=== PATIENT | female | born 1990 | race Caucasian/White ===

== ENCOUNTER 2018-03-16 18:29 | Emergency (ER) | payer OTHER ==
[~2018-03-16] VITALS: Ht 160 cm; Wt 56.7 kg
== END 2018-03-16 19:07 | disposition home or self-care (01) ==
LOC: FSED 18:29 → EDSEX 18:29 → FSED 19:07
DX: J02.0 Streptococcal pharyngitis (principal); F32.9 Major depressive disorder, single episode, unspecified; F17.210 Nicotine dependence, cigarettes, uncomplicated
CPT/HCPCS: 99283

== ENCOUNTER 2018-03-16 20:02 | Emergency (ER) | payer OTHER ==
[~2018-03-16] VITALS: Ht 160 cm; Wt 56.7 kg
[2018-03-16] MEDS ORDERED: PENICILLIN G BENZATHINE LA 1.2 MU TBX IM STA (20:14)
[2018-03-16] MEDS ORDERED: ACETAMINOPHEN/CODEINE ELIX 120-12 MG/5 ML UDC PO ONE (20:15)
[2018-03-16] MEDS ORDERED: DEXAMETHASONE SOD PHOS 10 MG/1 ML VIAL INJ ONE (20:15)
[2018-03-16] MEDS ORDERED: PENICILLIN G BENZATHINE LA 1.2 MU TBX ONE (20:23)
[2018-03-16] MEDS ORDERED: DEXAMETHASONE SOD PHOS 10 MG/1 ML VIAL ONE (20:23)
== END 2018-03-16 21:00 | disposition home or self-care (01) ==
LOC: EDSEX → ER 20:02
DX: J02.0 Streptococcal pharyngitis (principal); F32.9 Major depressive disorder, single episode, unspecified
CPT/HCPCS: 99282; J0561; J1100; 99283

== ENCOUNTER 2018-07-15 23:49 | Emergency (ER) | payer MEDICARE, OTHER ==
[~2018-07-15] VITALS: Ht 160 cm; Wt 56.7 kg
[2018-07-16] MEDS ORDERED: DEXAMETHASONE SOD PHOS 10 MG/1 ML VIAL IM ONE (00:30)
[2018-07-16] MEDS ORDERED: DEXAMETHASONE SOD PHOS 10 MG/1 ML VIAL ONE (00:39)
[2018-07-16] MEDS ORDERED: KEFLEX500 MG PO (01:14)
[2018-07-16] MEDS ORDERED: BACITRACIN15 GM TOP (01:14)
[2018-07-16] MEDS ORDERED: HIBICLENS120 ML TOP (01:14)
== END 2018-07-16 01:30 | disposition home or self-care (01) ==
LOC: ER 23:49
DX: L20.9 Atopic dermatitis, unspecified (principal)
CPT/HCPCS: 99282; J1100

== ENCOUNTER 2018-10-01 18:19 | Emergency (ER) | payer SELFPAY ==
[~2018-10-01] VITALS: Ht 160 cm; Wt 56.7 kg
[~2018-10-01 18:19] MED LIST: BACITRACIN15 GM TOP; HIBICLENS120 ML TOP; KEFLEX500 MG PO
--- OUTSIDE RECORDS SUMMARY | 2018-10-01 18:21 | XMS REPORT ---
Author Author [facility] Address Unknown Phone Unavailable Care Team Providers Care Adoption Worker Name Role Phone Unavailable Unavailable Problems This patient has no known problems. Allergies, Adverse Reactions, Alerts This patient has no known allergies or adverse reactions. Medications This patient has no known medications.
[2018-10-01] MEDS ORDERED: TETANUS/DIPHTHERIA TOX ADULT 0.5 ML SYR IM ONE (18:45)
--- NOTE | 2018-10-01 19:03 | Diagnostic Imaging Report ---
HAND 3+ VIEWS LEFT - 3 views HISTORY: Pain. Dr. Hughes. COMPARISON: None available. FINDINGS: Bones: No acute displaced fracture. Osseous alignment is within normal limits. Diffuse osteopenia. Joints: The joint spaces are well-maintained. Soft tissues: The soft tissues appear unremarkable. IMPRESSION: No acute radiographic abnormality. No radiopaque foreign bodies. Signed by: Dr. Antoni Wild M.D. on 10/01/2018 7:00 PM
[2018-10-01] MEDS ORDERED: AMOXICILLIN/CLAVULANATE K 500 MG TAB PO ONE (19:30)
[2018-10-01 20:04] VITALS: BP 121/75
[2018-10-01] MEDS ORDERED: BACITRACIN ZINC 0.9GM TP ONE (20:15)
== END 2018-10-01 20:29 | disposition home or self-care (01) ==
LOC: ER 18:19
DX: S61.452A Open bite of left hand, initial encounter (principal); W54.0XXA Bitten by dog, initial encounter; Y92.008 Other place in unspecified non-institutional (private) residence as the place of occurrence of the external cause; F41.9 Anxiety disorder, unspecified; F32.9 Major depressive disorder, single episode, unspecified; F17.210 Nicotine dependence, cigarettes, uncomplicated
CPT/HCPCS: 90471; 90714; 99283

== ENCOUNTER 2018-11-12 10:30 | Emergency (ER) | payer OTHER ==
[~2018-11-12] VITALS: Ht 160 cm; Wt 56.7 kg
--- OUTSIDE RECORDS SUMMARY | 2018-11-12 10:32 | XMS REPORT | Clinical Summary ---
Author Author [facility] Organization [facility] Address Unknown Phone Unavailable Care Team Providers Care [place] Name Role Phone Asked, No Pcp PCP Unavailable Allergies Comments Active Allergy Reactions Severity Noted Date Egg Itching 11/07/2018 Medications End Date Status Medication Sig Dispensed Refills Start Date 12/07/2018 Active 21-iron fu-folic Take 1 tablet 30 tablet 3 acid ( COMPLETE) by mouth 9 14 mg iron- 400 mcg daily for 30 tablet days. Active Problems Not on file Encounters Care Team Description Date Type Specialty Azeem Moreno, DO Normal intrauterine on ultrasound in first trimester (Primary Dx) 11/07/2018 Emergency Emergency Medicine after 11/11/2017 Social History Date Tobacco Use Types Packs/Day Years Used Never Smoker Smokeless Tobacco: Never Used Alcohol Use Drinks/Week oz/Week Comments Yes socially Alcohol Habits Answer Date Recorded How often do you have a drink containing alcohol? Never 11/07/2018 How many drinks containing alcohol do you have on Not asked a typical day when you are drinking? How often do you have six or more drinks on one Not asked occasion? Sex Assigned at Date Recorded Not on file Industry Job Start Date Occupation Not on file Not on file Not on file Travel End Travel History Travel Start No recent travel history available. Last Filed Vital Signs Time Taken Vital Sign Reading 11/07/2018 3:35 PM CDT Blood Pressure 111/66 11/07/2018 3:35 PM CDT Pulse 83 11/07/2018 10:29 AM CDT Temperature 36.7 C (98 F) 11/07/2018 3:35 PM CDT Respiratory Rate 18 11/07/2018 3:35 PM CDT Oxygen Saturation 100% - Inhaled Oxygen - Concentration 11/07/2018 10:26 AM CDT Weight 56.7 kg (125 lb) 11/07/2018 10:26 AM CDT Height 160 cm (5' 3") 11/07/2018 10:26 AM CDT Body Mass Index 22.14 Plan of Treatment Health Maintenance Due Date Last Done Comments INFLUENZA VACCINE 12/08/2018 Procedures Comments Procedure Name Priority Date/Time Associated Diagnosis US TRANSVAGINAL STAT 11/07/2018 2:43 PM CDT US SINGLE LESS STAT 11/07/2018 THAN 14 WEEKS 2:43 PM CDT ESTIMATED GFR STAT 11/07/2018 11:39 AM CDT COMPREHENSIVE METABOLIC STAT 11/07/2018 PANEL 11:39 AM CDT RH TYPE Routine 11/07/2018 11:39 AM CDT HCG QUANTITATIVE, SERUM STAT 11/07/2018 11:39 AM CDT HC COMPLETE BLD COUNT STAT 11/07/2018 W/AUTO DIFF 11:39 AM CDT HCG QUALITATIVE, URINE STAT 11/07/2018 SCREEN 10:38 AM CDT URINALYSIS SCREEN AND STAT 11/07/2018 MICROSCOPY, WITH REFLEX 10:38 AM CDT TO CULTURE after 11/11/2017 Results * US Transvaginal (11/07/2018 2:43 PM CDT) Specimen Narrative Performed At EXAMINATION:US SINGLE LESS THAN 14 WEEKS, US [facility] RADIANT TRANSVAGINAL CLINICAL HISTORY:r o ectopicleft pelvic pain COMPARISON:None. TECHNIQUE:Transverse and longitudinal transvaginal and transabdominal sonographic images of the pelvis were obtained. Grayscale, color Doppler, and spectral waveform analysis of the ovarian vessels was performed. FINDINGS: The uterus measures8.5 x 6.5 x 5.0 cm. The right ovary measures2.9 x 2.5 x 2.2 cm. There is an involuting corpus luteum measuring 2.0 cm. The left ovary measures2.5 x 2.0 x 1.1 cm. Blood flow is documented within each ovary. No suspicious fluid is identified. Limited evaluation demonstrates a single intrauterine , with ovoid morphology of the gestational sac. Mean gestational sac diameter: 1.2 cm. Yolk sac diameter: 0.2 cm. Sugar Notch-rump length: No pole identified. Estimated gestational age is 5 weeks 6 days which gives an JOSE of07/04/2019. The placenta is and there is no evidence of placenta previa. IMPRESSION: 1.An intrauterine gestational sac and yolk sac are identified, with estimated sonographic age of 5 weeks 6 days. No pole is identified, likely due to early . Recommend correlation with serial quantitative beta-hCG measurements and repeat imaging as indicated. [facility]-[id number] Procedure Note Interface, Radiology Results - 11/07/2018 2:55 PM CDT EXAMINATION: US SINGLE LESS THAN 14 WEEKS, US TRANSVAGINAL CLINICAL HISTORY: r o ectopic left pelvic pain COMPARISON: None. TECHNIQUE:Transverse and longitudinal transvaginal and transabdominal sonographic images of the pelvis were obtained. Grayscale, color Doppler, and spectral waveform analysis of the ovarian vessels was performed. FINDINGS: The uterus measures 8.5 x 6.5 x 5.0 cm. The right ovary measures 2.9 x 2.5 x 2.2 cm. There is an involuting corpus luteum measuring 2.0 cm. The left ovary measures 2.5 x 2.0 x 1.1 cm. Blood flow is documented within each ovary. No suspicious fluid is identified. Limited evaluation demonstrates a single intrauterine , with ovoid morphology of the gestational sac. Mean gestational sac diameter: 1.2 cm. Yolk sac diameter: 0.2 cm. Sugar Notch-rump length: No pole identified. Estimated gestational age is 5 weeks 6 days which gives an JOSE of 07/04/2019. The placenta is and there is no evidence of placenta previa. IMPRESSION: 1. An intrauterine gestational sac and yolk sac are identified, with estimated sonographic age of 5 weeks 6 days. No pole is identified, likely due to early . Recommend correlation with serial quantitative beta-hCG measurements and repeat imaging as indicated. [facility]-[id number] Performing Organization Address City/State/Zipcode Phone Number [facility] [address] [place] [address] * US Single Less Than 14 Weeks (11/07/2018 2:43 PM CDT) Specimen Narrative Performed At EXAMINATION:US SINGLE LESS THAN 14 WEEKS, US [facility] TRANSVAGINAL CLINICAL HISTORY:r o ectopicleft pelvic pain COMPARISON:None. TECHNIQUE:Transverse and longitudinal transvaginal and transabdominal sonographic images of the pelvis were obtained. Grayscale, color Doppler, and spectral waveform analysis of the ovarian vessels was performed. FINDINGS: The uterus measures8.5 x 6.5 x 5.0 cm. The right ovary measures2.9 x 2.5 x 2.2 cm. There is an involuting corpus luteum measuring 2.0 cm. The left ovary measures2.5 x 2.0 x 1.1 cm. Blood flow is documented within each ovary. No suspicious fluid is identified. Limited evaluation demonstrates a single intrauterine , with ovoid morphology of the gestational sac. Mean gestational sac diameter: 1.2 cm. Yolk sac diameter: 0.2 cm. Sugar Notch-rump length: No pole identified. Estimated gestational age is 5 weeks 6 days which gives an JOSE of07/04/2019. The placenta is and there is no evidence of placenta previa. IMPRESSION: 1.An intrauterine gestational sac and yolk sac are identified, with estimated sonographic age of 5 weeks 6 days. No pole is identified, likely due to early . Recommend correlation with serial quantitative beta-hCG measurements and repeat imaging as indicated. [facility]-[id number] Procedure Note [facility], Radiology Results Incoming - 11/07/2018 2:55 PM CDT EXAMINATION: US SINGLE LESS THAN 14 WEEKS, US TRANSVAGINAL CLINICAL HISTORY: r o ectopic left pelvic pain COMPARISON: None. TECHNIQUE:Transverse and longitudinal transvaginal and transabdominal sonographic images of the pelvis were obtained. Grayscale, color Doppler, and spectral waveform analysis of the ovarian vessels was performed. FINDINGS: The uterus measures 8.5 x 6.5 x 5.0 cm. The right ovary measures 2.9 x 2.5 x 2.2 cm. There is an involuting corpus luteum measuring 2.0 cm. The left ovary measures 2.5 x 2.0 x 1.1 cm. Blood flow is documented within each ovary. No suspicious fluid is identified. Limited evaluation demonstrates a single intrauterine , with ovoid morphology of the gestational sac. Mean gestational sac diameter: 1.2 cm. Yolk sac diameter: 0.2 cm. Sugar Notch-rump length: No pole identified. Estimated gestational age is 5 weeks 6 days which gives an JOSE of 07/04/2019. The placenta is and there is no evidence of placenta previa. IMPRESSION: 1. An intrauterine gestational sac and yolk sac are identified, with estimated sonographic age of 5 weeks 6 days. No pole is identified, likely due to early . Recommend correlation with serial quantitative beta-hCG measurements and repeat imaging as indicated. [facility]-[id number] Performing Organization Address City/State/Zipcode Phone Number [facility] [address] [place] [address] * Estimated GFR (11/07/2018 11:39 AM CDT) Pathologist [facility] Estimated GFR >=90 mL/min/1.73 m2 [facility] Comment: [facility] G1 >=90 Normal or high G2 60-89Mildly decreased [id number] Mildly to moderately decreased [id number] Moderately to severely decreased G4 15-29Severely decreased G5 <15Kidney failure The eGFR was calculated using the Chronic Kidney Disease Epidemiology Collaboration (CKD-EPI) equation. Interpretation is based on recommendations of the National Kidney Foundation-Kidney Disease Outcomes Quality Initiative (NKF-KDOQI) published in 2014. Specimen Plasma specimen Performing Organization Address City/[facility]/Zipcode Phone Number [facility] [address] [place] [address] PATHOLOGY AND [facility] MEDICINE [address] * RH type (11/07/2018 11:39 AM CDT) Pathologist [facility] Rh type POS [facility] Specimen Blood Performing Organization Address City/State/Zipcode Phone Number [facility] [address] [place] [address] PATHOLOGY AND GENOMIC MEDICINE [place] [id number] [address] * CBC with platelet and differential (11/07/2018 11:39 AM CDT) [facility] WBC 10.7 4.2 - 11.0 k/uL [facility] RBC 3.91 (L) 4.04 - 5.86 m/uL [facility] HGB 12.1 11.5 - 15.3 g/dL [facility] HCT 36.6 34.0 - 45.0 % [facility] MCV 93.6 80.0 - 98.0 fL [facility] MCH 30.9 27.0 - 34.0 pg [facility] MCHC 33.1 31.5 - 36.5 g/dL [facility] RDW - SD 43.5 37.0 - 51.0 fL [facility] MPV 12.2 (H) 7.4 - 10.4 fL [facility] Platelet count 322 150 - 400 k/uL [facility] Nucleated RBC 0.00 /100 WBC [facility] Neutrophils 59.3 36.0 - 66.0 % [facility] Lymphocytes 25.1 24.0 - 44.0 % [facility] Monocytes 7.7 (H) 0.0 - 6.0 % [facility] Eosinophils 7.0 (H) 0.0 - 6.0 % [facility] Basophils 0.6 0.0 - 1.2 % [facility] Immature 0.3 0.0 - 1.0 % [facility] granulocytes [facility] Specimen Blood Performing Organization Address City/State/Zipcode Phone Number [facility] [address] [place] [address] PATHOLOGY AND GENOMIC MEDICINE [facility] [address] * hCG quantitative, serum (11/07/2018 11:39 AM CDT) hCG 14,437 (H) 0 - 5 mIU/mL [facility], Comment: [facility] serum EXPECTED RANGE: [facility] >25 mIU/mL seen in . HOSPITAL For values 1-24: Indeterminate result.Recommend retesting in 72 hours. HCG doubling time for normal is about 2.5 days. Approx Gestational Age Approx. HCG Conc. (mIU/mL) 0-2 weeks 0-500 2-3 weeks 100-1000 3-4 weeks 500-6000 1-3 months 5000-200,000 2nd Trimester 5000-50,000 3rd Trimester 5000-50,000 Specimen Blood Performing Organization Address City/State/Zipcode Phone Number [facility] [address] [place] [address] PATHOLOGY AND GENOMIC MEDICINE [place] [address] [address] * Comprehensive metabolic panel (11/07/2018 11:39 AM CDT) [facility] Sodium 138 135 - 150 mEq/L [facility] Potassium 4.8 3.5 - 5.0 mEq/L [facility] Chloride 102 98 - 112 mEq/L [facility] CO2 24 24 - 31 mmol/L [facility] Anion gap 12@ANIO 7 - 15 mEq/L [facility] BUN 12 7 - 18 mg/dL [facility] Creatinine 0.60 0.50 - 0.90 mg/dL [facility] Glucose 105 (H) 65 - 100 mg/dL [facility] Calcium 9.0 8.3 - 10.2 mg/dL [facility] Protein 7.8 6.3 - 8.3 g/dL [facility] Albumin 4.3 3.5 - 5.0 g/dL [facility] A/G ratio 1.2 0.7 - 3.8 [facility] Alkaline 36 0 - 104 U/L [facility] phosphatase [facility] AST 30 10 - 35 U/L [facility] ALT 11 5 - 50 U/L [facility] Total bilirubin 0.3 0.2 - 1.2 mg/dL [facility] Specimen Plasma specimen Performing Organization Address City/State/Zipcode Phone Number [facility] [address] [place] [phone] PATHOLOGY AND GENOMIC MEDICINE [place] [address] [address] * Urinalysis screen and microscopy, with reflex to culture (11/07/2018 10:38 AM CDT) Specimen site Clean catch [facility] Color, UA Yellow [facility] Appearance, UA Clear [facility] Specific 1.021 1.001 - 1.035 [facility] gravity, [facility] pH, UA 5.0 5.0 - 8.5 [facility] Protein, UA Negative Negative [facility] Glucose, UA Negative Negative [facility] Ketones, UA Negative Negative [facility] Bilirubin, UA Negative Negative [facility] Blood, UA Negative Negative [facility] Nitrite, UA Negative Negative [facility] Urobilinogen, Negative <2.0 [facility] Leukocyte Negative Negative [facility] esterase, [facility] Epithelial Many /HPF [facility] cells, [facility] WBC, UA <1 0 - 5 /HPF [facility] RBC, UA <1 0 - 5 /HPF [facility] Bacteria, UA Trace None seen [facility] Yeast, UA None seen [facility] Yeast with None seen [facility] pseudohyphae, [facility] Specimen Urine Performing Organization Address City/State/[facility] Phone Number [facility] OF [address] [place] [address] PATHOLOGY AND GENOMIC MEDICINE [address] [place] [address] HOSPITAL * hCG qualitative, urine screen (11/07/2018 10:38 AM CDT) hCG Positive Negative [facility] qualitative, Comment: [facility] urine The manufacturers stated [facility] sensitivity of HcG test for HOSPITAL serum is >/=10 mIU/ml and urine is >/=20mIU/ml. Specimen Urine Performing Organization Address City/State/Zipcode Phone Number [facility] [address] [place] [address] PATHOLOGY [place] [address] HOSPITAL after 11/11/2017 Insurance Type Payer Benefit Subscriber ID Effective Phone Address Plan / Dates Group HMO [facility] xxxxxxxxx [id number] JARRED/RAYMUNDO plata ELA Advance Directives Patient has advance care planning documents on file. For more information, stefania matthew contact: Maxwell Pearson [address] [place] [address]
[2018-11-12 10:53] LABS: BASOPHILS # (AUTO) 0.1 (0.0-0.1); BASOPHILS % 0.4 % (0.0-1.0); EOSINOPHILS # (AUTO) 0.6 (0.0-0.4); EOSINOPHILS % 3.9 % (0.0-6.0); HEMOGLOBIN 13.3 g/dL (12.0-16.0); LYMPHOCYTES # (AUTO) 3.1 (1.0-3.2); LYMPHOCYTES % 19.6 % (18.0-39.1); MEAN CORPUSCULAR HEMOGLOBIN 31.1 pg (28-32); MEAN CORPUSCULAR HGB CONC 34.1 g/dL (31-35); MEAN CORPUSCULAR VOLUME 91.3 fL (81-99); MONOCYTES # (AUTO) 0.9 (0.2-0.8); MONOCYTES % 5.9 % (4.4-11.3); NEUTROPHILS # (AUTO) 11.1 (2.1-6.9); NEUTROPHILS % 69.7 % (38.7-80.0); PLATELET COUNT 276 x10e3/uL (140-360); RED BLOOD COUNT 4.27 x10e6/uL (3.6-5.1); RED CELL DISTRIBUTION WIDTH 12.4 % (11.7-14.4)
[2018-11-12 10:55] LABS: BILIRUBIN,URINE NEGATIVE (NEGATIVE); CLARITY,URINE CLEAR (CLEAR); COLOR,URINE YELLOW (YELLOW); KETONES,URINE NEGATIVE (NEGATIVE); LEUKOCYTE ESTERASE ,URINE NEGATIVE (NEGATIVE); NITRITE,URINE NEGATIVE (NEGATIVE); PROTEIN,URINE DIPSTICK NEGATIVE (NEGATIVE); URINE UROBILINOGEN 0.2 mg/dL (0.2 - 1)
[2018-11-12 11:09] LABS: BACTERIA,URINE FEW /HPF; EPITHELIAL CELLS,URINE FEW /LPF; RBC,URINE 0-5 /HPF (0-5); WBC,URINE (MAN) 0-5 /HPF (0-5)
[2018-11-12 11:12] LABS: BLOOD UREA NITROGEN 6 mg/dL (7-26)
[2018-11-12 11:15] LABS: ALANINE AMINOTRANSFERASE 15 IU/L (0-55); ALBUMIN 4.3 g/dL (3.5-5.0); ALBUMIN/GLOBULIN RATIO 1.4 (0.8-2.0); ALKALINE PHOSPHATASE 44 IU/L (40-150); ANION GAP 14.9 mmol/L (8-16); BUN/CREATININE RATIO 9 (6-25); CALCIUM 9.6 mg/dL (8.4-10.2); CARBON DIOXIDE 24 mmol/L (22-29); CHLORIDE 100 mmol/L (98-107); EST GLOMERULAR FILTRATION RATE > 60 ML/MIN (60-); GLUCOSE 106 mg/dL (74-118); POTASSIUM 3.9 mmol/L (3.5-5.1); SODIUM 135 mmol/L (136-145)
[2018-11-12 11:45] LABS: HCG,QUANTITATIVE 44515.18 mIU/mL (0-10)
[2018-11-12 12:01] VITALS: BP 130/81
== END 2018-11-12 12:08 | disposition home or self-care (01) ==
LOC: ER 10:30
DX: O00.90 Unspecified ectopic pregnancy without intrauterine pregnancy (principal); R10.11 Right upper quadrant pain
CPT/HCPCS: 36415; 80053; 81001; 83690; 84702; 85025; 99283

== ENCOUNTER 2019-02-05 00:40 | Emergency (ER) | payer OTHER ==
[~2019-02-05] VITALS: Ht 160 cm; Wt 64.4 kg
--- OUTSIDE RECORDS SUMMARY | 2019-02-05 00:45 | XMS REPORT | Clinical Summary ---
Author Author [facility] Address Unknown Phone Unavailable Care Team Providers Care Online Producer Name Role Phone Asked, No Pcp PCP Unavailable Allergies Comments Active Allergy Reactions Severity Noted Date Egg Itching 11/07/2018 Medications End Date Status Medication Sig Dispensed Refills Start Date 12/07/2018 21-iron fu-folic Take 1 tablet 30 tablet 3 acid ( COMPLETE) by mouth 9 14 mg iron- 400 mcg daily for 30 tablet days. Active Problems Not on file Encounters Care Team Description Date Type Specialty Azeem Moreno, DO Normal intrauterine on ultrasound in first trimester (Primary Dx) 11/07/2018 Emergency Emergency Medicine after 02/04/2018 Social History Date Tobacco Use Types Packs/Day Years Used Never Smoker Smokeless Tobacco: Never Used Drinks/Week oz/Week Comments Alcohol Use socially Yes Alcohol Habits Answer Date Recorded How often [...] travel history available. Last Filed Vital Signs Reading Time Taken Comments Vital Sign 111/66 11/07/2018 3:35 PM CDT Blood Pressure 83 11/07/2018 3:35 PM CDT Pulse 36.7 C (98 F) 11/07/2018 10:29 AM CDT Temperature 18 11/07/2018 3:35 PM CDT Respiratory Rate 100% 11/07/2018 3:35 PM CDT Oxygen Saturation - - Inhaled Oxygen Concentration 56.7 kg (125 lb) 11/07/2018 10:26 AM CDT Weight 160 cm (5' 3") 11/07/2018 10:26 AM CDT Height 22.14 11/07/2018 10:26 AM CDT Body Mass Index Plan of Treatment Health Maintenance Due Date Last Done Comments CERVICAL CANCER SCREENING 01/05/2012 INFLUENZA VACCINE 12/08/2018 Procedures Comments Procedure Name [...] REFLEX 10:38 AM CDT TO CULTURE after 02/04/2018 Results * US Transvaginal (11/07/2018 2:43 PM [...] 1.2 cm. Yolk sac diameter: 0.2 cm. Hartwick-rump length: No pole identified. Estimated gestational age [...] beta-hCG measurements and repeat imaging as indicated. [facility]-[id number] Procedure Note Interface, Radiology Results Incoming - 11/07/2018 2:55 PM [...] 1.2 cm. Yolk sac diameter: 0.2 cm. Hartwick-rump length: No pole identified. Estimated gestational age [...] beta-hCG measurements and repeat imaging as indicated. [facility]-[id number] Performing Organization Address City/State/Zipcode Phone Number [facility] [address] [place] [address] * [place] Single Less Than 14 Weeks [...] 1.2 cm. Yolk sac diameter: 0.2 cm. Hartwick-rump length: No pole identified. Estimated gestational age [...] beta-hCG measurements and repeat imaging as indicated. [facility]-[id number] Procedure Note Interface, Radiology Results Incoming - 11/07/2018 2:55 PM [...] 1.2 cm. Yolk sac diameter: 0.2 cm. Hartwick-rump length: No pole identified. Estimated gestational age [...] beta-hCG measurements and repeat imaging as indicated. [facility]-[id number] Performing Organization Address City/State/Zipcode Phone Number [facility] [address] [place] [address] * Estimated GFR (11/07/2018 11:39 AM CDT) Pathologist [facility] [place] Estimated GFR >=90 mL/min/1.73 m2 [facility] Comment: [facility] G1 >=90 Normal or high G2 60-89Mildly decreased [id number] Mildly to moderately decreased [id number] Moderately to severely decreased G4 15-29Severely decreased G5 <15Kidney failure The eGFR was calculated using the Chronic Kidney Disease Epidemiology Collaboration (CKD-EPI) equation. Interpretation is based on recommendations of the National Kidney Foundation-Kidney Disease Outcomes Quality Initiative (NKF-KDOQI) published in 2014. Specimen Plasma specimen Performing Organization Address City/[facility]/Zipcode Phone Number [facility] [place] [address] [place] [address] PATHOLOGY AND GENOMIC MEDICINE [address] * RH type (11/07/2018 11:39 AM CDT) Pathologist [facility] [place] Rh type POS [facility] Specimen Blood Performing Organization Address City/[facility]/Zipcode Phone Number [facility] DEPARTMENT OF [address] [place] [address] PATHOLOGY AND GENOMIC MEDICINE [address] * CBC with platelet and differential (11/07/2018 11:39 AM CDT) Pathologist [facility] [place] WBC 10.7 4.2 - 11.0 k/uL [facility] RBC 3.91 (L) 4.04 - 5.86 m/uL [facility] HGB 12.1 11.5 - 15.3 g/dL [facility] HCT 36.6 34.0 - 45.0 % [facility] MCV 93.6 80.0 - 98.0 fL [facility] MCH 30.9 27.0 - 34.0 pg [facility] MCHC 33.1 31.5 - 36.5 g/dL [facility] RDW - SD 43.5 37.0 - 51.0 fL [facility] MPV 12.2 (H) 7.4 - 10.4 fL [facility] Platelet count 322 150 - 400 k/uL [facility] Nucleated RBC 0.00 /100 WBC [facility] Neutrophils 59.3 36.0 - 66.0 % [facility] Lymphocytes 25.1 24.0 - 44.0 % [facility] Monocytes 7.7 (H) 0.0 - 6.0 % [facility] Eosinophils 7.0 (H) 0.0 - 6.0 % [facility] Basophils 0.6 0.0 - 1.2 % [facility] Immature 0.3 0.0 - 1.0 % [facility] granulocytes [facility] Specimen Blood Performing Organization Address City/State/Zipcode Phone Number [facility] DEPARTMENT OF [address] [place] [address] PATHOLOGY AND GENOMIC MEDICINE [facility] [address] * hCG quantitative, serum (11/07/2018 11:39 AM CDT) hCG 14,437 (H) 0 - 5 mIU/mL [facility], Comment: RELIGIOUS serum EXPECTED RANGE: [place] >25 mIU/mL seen in . HOSPITAL For values 1-24: Indeterminate result.Recommend retesting in 72 hours. HCG doubling time for normal is about 2.5 days. Approx Gestational Age Approx. HCG Conc. (mIU/mL) 0-2 weeks 0-500 2-3 weeks 100-1000 3-4 weeks 500-6000 1-3 months 5000-200,000 2nd Trimester 5000-50,000 3rd Trimester 5000-50,000 Specimen Blood Performing Organization Address City/State/Zipcode Phone Number [facility] DEPARTMENT OF [address] [place] [phone] PATHOLOGY AND GENOMIC MEDICINE [place] [address] [address] * Comprehensive metabolic panel (11/07/2018 11:39 AM CDT) Sodium 138 135 - 150 mEq/L [facility] Potassium 4.8 3.5 - 5.0 mEq/L [facility] Chloride 102 98 - 112 mEq/L [facility] CO2 24 24 - 31 mmol/L [facility] Anion gap 12@ANIO 7 - 15 mEq/L [facility] BUN 12 7 - 18 mg/dL [facility] Creatinine 0.60 0.50 - 0.90 mg/dL [facility] Glucose 105 (H) 65 - 100 mg/dL [facility] Calcium 9.0 8.3 - 10.2 mg/dL [facility] Protein 7.8 6.3 - 8.3 g/dL [facility] Albumin 4.3 3.5 - 5.0 g/dL [facility] A/G ratio 1.2 0.7 - 3.8 [facility] Alkaline 36 0 - 104 U/L [facility] phosphatase [facility] AST 30 10 - 35 U/L [facility] ALT 11 5 - 50 U/L [facility] Total bilirubin 0.3 0.2 - 1.2 mg/dL [facility] Specimen Plasma specimen Performing Organization Address City/[facility]/Zipcode Phone Number [facility] OF [address] [place] [address] PATHOLOGY AND GENOMIC MEDICINE [place] [address] [address] * Urinalysis screen and microscopy, with reflex to culture (11/07/2018 10:38 AM CDT) Specimen site Clean catch [facility] Color, UA Yellow [facility] Appearance, UA Clear [facility] Specific 1.021 1.001 - 1.035 [facility] gravity, UA [facility] pH, UA 5.0 5.0 - 8.5 [facility] Protein, UA Negative Negative [facility] Glucose, UA Negative Negative [facility] Ketones, UA Negative Negative [facility] Bilirubin, UA Negative Negative [facility] Blood, UA Negative Negative [facility] Nitrite, UA Negative Negative [facility] Urobilinogen, Negative <2.0 [facility] Leukocyte Negative Negative [facility] esterase, UA [facility] Epithelial Many /HPF [facility] cells, [facility] WBC, UA <1 0 - 5 /HPF [facility] RBC, UA <1 0 - 5 /HPF [facility] Bacteria, UA Trace None seen [facility] Yeast, UA None seen [facility] Yeast with None seen [facility] Specimen Urine Performing Organization Address City/State/Zipcode Phone Number [facility] [address] [place] [address] PATHOLOGY AND GENOMIC MEDICINE [place] [address] [place] [address] HOSPITAL * hCG qualitative, urine screen (11/07/2018 10:38 AM CDT) hCG Positive Negative [facility] qualitative, Comment: RELIGIOUS urine The manufacturers stated [place] sensitivity of HcG test for HOSPITAL serum is >/=10 mIU/ml and urine is >/=20mIU/ml. Specimen Urine Performing Organization Address City/State/Zipcode Phone Number [facility] [address] [place] [address] PATHOLOGY AND GENOMIC MEDICINE [place] [address] [place] [address] HOSPITAL after 02/04/2018 Insurance Type Payer Benefit Subscriber ID Effective Phone Address Plan / Dates Group [employer] [facility] xxxxxxxxx [id number] JARRED/[employer] Advance Directives For more information, please contact: [phone] Patient Solutions Architect Explanation Type Date Recorded Advance Directives, 11/07/2018 11:01 AM Living Will and Medical Power of [employer]
--- NOTE | 2019-02-05 02:18 | NUR ---
HEART TONES 156
[2019-02-05 02:26] VITALS: BP 111/67
== END 2019-02-05 02:32 | disposition home or self-care (01) ==
LOC: ER 00:40
DX: O26.90 Pregnancy related conditions, unspecified, unspecified trimester (principal); K62.5 Hemorrhage of anus and rectum; K64.8 Other hemorrhoids
CPT/HCPCS: 82270; 99283

== ENCOUNTER 2019-03-08 12:20 | Emergency (ER) | payer OTHER ==
[~2019-03-08] VITALS: Ht 160 cm; Wt 64.4 kg
[2019-03-08] MEDS ORDERED: SODIUM CHLORIDE 0.9% 1000ML 1,000 ML IV STA (13:35)
[2019-03-08] MEDS ORDERED: ONDANSETRON HCL INJ 2MG/ML 2ML 2 MG/ML VIAL IV ONE (13:35)
[2019-03-08 14:15] LABS: BILIRUBIN,URINE NEGATIVE (NEGATIVE); CLARITY,URINE SL CLOUDY (CLEAR); COLOR,URINE YELLOW (YELLOW); KETONES,URINE TRACE (NEGATIVE); LEUKOCYTE ESTERASE ,URINE NEGATIVE (NEGATIVE); NITRITE,URINE NEGATIVE (NEGATIVE); PROTEIN,URINE DIPSTICK NEGATIVE (NEGATIVE); URINE UROBILINOGEN 0.2 mg/dL (0.2 - 1)
[2019-03-08 14:17] LABS: BASOPHILS # (AUTO) 0.1 (0.0-0.1); BASOPHILS % 0.4 % (0.0-1.0); EOSINOPHILS # (AUTO) 0.1 (0.0-0.4); EOSINOPHILS % 0.7 % (0.0-6.0); HEMATOCRIT 37.1 % (34.2-44.1); HEMOGLOBIN 12.3 g/dL (12.0-16.0); LYMPHOCYTES # (AUTO) 2.7 (1.0-3.2); LYMPHOCYTES % 14.2 % (18.0-39.1); MEAN CORPUSCULAR HEMOGLOBIN 30.9 pg (28-32); MEAN CORPUSCULAR HGB CONC 33.2 g/dL (31-35); MEAN CORPUSCULAR VOLUME 93.2 fL (81-99); MONOCYTES % 5.2 % (4.4-11.3); NEUTROPHILS # (AUTO) 14.9 (2.1-6.9); NEUTROPHILS % 77.9 % (38.7-80.0); PLATELET COUNT 215 x10e3/uL (140-360); RED BLOOD COUNT 3.98 x10e6/uL (3.6-5.1); RED CELL DISTRIBUTION WIDTH 13.3 % (11.7-14.4)
[2019-03-08 14:31] LABS: BACTERIA,URINE MODERATE /HPF; EPITHELIAL CELLS,URINE MANY /LPF
[2019-03-08 14:36] LABS: INR 0.9; PROTHROMBIN TIME 12.6 seconds (11.9-14.5)
[2019-03-08 14:41] LABS: ALANINE AMINOTRANSFERASE 26 IU/L (0-55); ALBUMIN 3.9 g/dL (3.5-5.0); ALKALINE PHOSPHATASE 60 IU/L (40-150); ANION GAP 13.6 mmol/L (8-16); BLOOD UREA NITROGEN 5 mg/dL (7-26); BUN/CREATININE RATIO 8 (6-25); CALCIUM 9.6 mg/dL (8.4-10.2); CARBON DIOXIDE 25 mmol/L (22-29); CHLORIDE 100 mmol/L (98-107); CREATINE KINASE 70 IU/L (29-168); CREATININE, SERUM 0.59 mg/dL (0.57-1.11); EST GLOMERULAR FILTRATION RATE > 60 ML/MIN (60-); GLUCOSE 96 mg/dL (74-118); POTASSIUM 3.6 mmol/L (3.5-5.1); SODIUM 135 mmol/L (136-145)
[2019-03-08 14:50] LABS: HCG,QUANTITATIVE 11627.28 mIU/mL (0-10)
--- NOTE | 2019-03-08 15:39 | Diagnostic Imaging Report ---
TECHNIQUE: Transabdominal grayscale ultrasound of the gravid uterus. INDICATION: 29-year-old woman after fall. COMPARISON: None. FINDINGS: A single fetus is identified, in breech presentation. heart rate measures 149 bpm. The visualized anatomy, including the brain, heart, spine, stomach, kidneys, bladder, upper extremities, and lower extremities appear normal. The three-vessel umbilical cord insertion is identified. Anatomic measurements are included in this exam for reference. Estimated weight 1 lb 1 oz, +/- 3 oz 489 gm +/- 73 gm Estimated gestational age (sonographic) 22 w 3 d The amniotic fluid volume is adequate by visual inspection. The amniotic fluid index is 11.4 cm. The placenta is fundal/posterior. The maternal cervix measures 3.3 in length, within normal limits. IMPRESSION: Single live intrauterine . Visualized anatomy and placenta appear normal. Signed by: Doris Serra MD on 03/08/2019 3:35 PM
== END 2019-03-08 16:41 | disposition home or self-care (01) ==
LOC: ER 12:20
DX: O26.892 Other specified pregnancy related conditions, second trimester (principal); R42 Dizziness and giddiness; S00.81XA Abrasion of other part of head, initial encounter; W01.190A Fall on same level from slipping, tripping and stumbling with subsequent striking against furniture, initial encounter; Y92.003 Bedroom of unspecified non-institutional (private) residence as the place of occurrence of the external cause; F41.9 Anxiety disorder, unspecified; F32.9 Major depressive disorder, single episode, unspecified
CPT/HCPCS: 36415; 76805; 80053; 81001; 82550; 82553; 84484; 84702; 85025; 85610; 85730; 86900; 87086; 93005; 99284; J2405; J7030

== ENCOUNTER 2022-03-01 15:18 | Emergency (ER) | payer OTHER ==
[~2022-03-01] VITALS: Ht 160 cm; Wt 67.1 kg
[2022-03-01] MEDS ORDERED: KETOROLAC TROMETHAMINE 60 MG/2 ML VIAL IM ONE (15:30)
[2022-03-01] MEDS ORDERED: HYDROCODON-ACE1 EA11 PO (17:34)
== END 2022-03-01 18:38 | disposition home or self-care (01) ==
LOC: ER 15:35
DX: S52.121A Displaced fracture of head of right radius, initial encounter for closed fracture (principal); W01.0XXA Fall on same level from slipping, tripping and stumbling without subsequent striking against object, initial encounter; Y93.51 Activity, roller skating (inline) and skateboarding; Y92.89 Other specified places as the place of occurrence of the external cause; F41.9 Anxiety disorder, unspecified; E28.2 Polycystic ovarian syndrome
CPT/HCPCS: 99284

== ENCOUNTER 2024-06-23 14:02 | Emergency (ER) | payer OTHER ==
[~2024-06-23] VITALS: Ht 160 cm; Wt 67.1 kg
[~2024-06-23 14:02] MED LIST changes: +HYDROCODON-ACE1 EA11 PO
[2024-06-23 14:40] VITALS: PULSE 92; RESP 16; TEMP 97.5; O2SAT 98
== END 2024-06-23 16:24 | disposition home or self-care (01) ==
LOC: ER 14:39
DX: M25.562 Pain in left knee (principal); F41.9 Anxiety disorder, unspecified; F32.A Depression, unspecified; E28.2 Polycystic ovarian syndrome
CPT/HCPCS: 99283